=== PATIENT | male | born 1990 | race Caucasian/White ===

== ENCOUNTER 2016-12-29 05:26 | Emergency (ER) | payer OTHER ==
[2016-12-29] MEDS ORDERED: NS 0.9% 1000 ML* 1,000 ML IV ONE (05:40)
--- NOTE | 2016-12-29 06:20 | ED ---
Emery Lepe Matthew, scribed for Sean Ballesteros MD on 12/29/16 at 0602 . Substance Abuse/Use - HPI Summary HPI Summary: A 26 y/o male presents to the ED with an AMS. The patient's parents are unsure what medications he's taken. Per the patient he took Ambien and has 2 beers. He states that he normally takes 2 Ambien and a few beers before going to bed. He has a Hx of substance abuse and is currently taking suboxone. Per the father, the patient has been dressing and undressing, folding and unfolding, and taking pots and pans out of the kitchen. They also found the Ambien bottle open in the patient's room. - History Of Current Complaint Chief Complaint: EDAltMentalStatus Stated Complaint: OVERDOSE Time Seen by Provider: 12/29/16 05:40 Hx Obtained From: Patient, Family/Virtual Recruiter - Father & Mother Overdose Characteristics: Oral Severity Initially: Moderate Severity Currently: Moderate Character: Other - Confused Associated Signs And Symptoms: Negative Related Hx: Prior Drug Abuse Counseling/Admission - Allergies/Home Medications Allergies/Adverse Reactions: Allergies Allergy/AdvReac Type Severity Reaction Status Date / Time Penicillins [PCN] Allergy Hives Verified 03/04/15 18:03 PMH/Surg Hx/FS Hx/Imm Hx Psychiatric History: Reports: Hx Anxiety, Hx Substance Abuse Infectious Disease History: No Infectious Disease History: Denies: Traveled Outside the [place] in Last 30 Days - Family History Known Family History: Positive: Cardiac Disease, Diabetes - Social History Alcohol Use: Occasionally Alcohol Amount: Once per month Hx Substance Use: Yes Substance Use Type: Reports: Prescribed Substance Use Comment - Amount & Last Used: States he is "recovering addict"- subboxone injection Hx Tobacco Use: Yes Smoking Status (MU): Heavy Every Day Tobacco Smoker Review of Systems Constitutional: Negative Eyes: Negative ENT: Negative Cardiovascular: Negative Respiratory: Negative Gastrointestinal: Negative Genitourinary: Negative Musculoskeletal: Negative Skin: Negative Neurological: Other - Confusion Psychological: Other - apparent overdose All Other Systems Reviewed And Are Negative: Yes Physical Exam Triage Information Reviewed: Yes Vital Signs On Initial Exam: Initial Vitals Temp Pulse Resp BP Pulse Ox 99.7 F 120 18 147/100 100 12/29/16 05:29 12/29/16 05:29 12/29/16 05:29 12/29/16 05:29 12/29/16 05:29 Vital Signs Reviewed: Yes Appearance: Positive: No Pain Distress Skin: Positive: Warm Head/Face: Positive: Normal Head/Face Inspection Eyes: Positive: DENISSE ENT: Positive: Hearing grossly normal Neck: Positive: Supple Respiratory/Lung Sounds: Positive: Breath Sounds Present Cardiovascular: Positive: RRR Abdomen Description: Positive: Nontender, Soft Bowel Sounds: Positive: Present Musculoskeletal: Positive: Strength/ROM Intact Neurological: Positive: Alert, Oriented to Person Place, Time Psychiatric: Positive: Affect/Mood Appropriate Diagnostics - Vital Signs Vital Signs Temp Pulse Resp BP Pulse Ox 12/29/16 05:41 99.7 F 107 20 154/102 96 12/29/16 05:29 99.7 F 120 18 147/100 100 - Laboratory Result Diagrams: 12/29/16 06:05 12/29/16 06:05 Lab Statement: Any lab studies that have been ordered have been reviewed, and results considered in the medical decision making process. Course/Dx - Diagnoses Provider Diagnoses: Polysubstance abuse Discharge - Discharge Plan Condition: Fair Disposition: OTHER Discharge Disposition Comment: The patient is signed out to Dr. Doan pending lab work. Patient Education Materials: Polysubstance Abuse (ED) Referrals: Pedro Luis BOWEN,Cindy [Medical Doctor] - Krish Victoria DO [Primary Care Provider] - The documentation as recorded by the Emery mario Matthew accurately reflects the service I personally performed and the decisions made by me, Sean Ballesteros MD.
[2016-12-29 06:45] LABS: Hematocrit 43 % (42-52); Hemoglobin 14.8 g/dl (14.0-18.0); Mean Corpuscular HGB Conc 34 g/dl (31-36); Mean Corpuscular Hemoglobin 29 pg (27-31); Mean Corpuscular Volume 85 fL (80-94); Mean Platelet Volume 9 um3 (7.4-10.4); Red Blood Count 5.09 10^6/ul (4.0-5.4); Red Cell Distribution Width 14 % (10.5-15); White Blood Count 7.7 10^3/ul (3.5-10.8)
[2016-12-29 07:02] LABS: ALT 23 U/L (7-52); AST 41 U/L (13-39); Albumin 5.4 g/dL (3.2-5.2); Alkaline Phosphatase 43 U/L (34-104); Anion Gap 12 mmol/L (2-11); BUN/Creatinine Ratio 14.2 (8-20); Blood Urea Nitrogen 17 mg/dL (6-24); CO2 Carbon Dioxide 27 mmol/L (22-32); Calcium 10.2 mg/dL (8.6-10.3); Chloride 98 mmol/L (101-111); EGFR African American 93.4 (>60); EGFR Non-African American 72.6 (>60); Globulin 2.6 g/dL (2-4); Glucose 93 mg/dL (70-100); Potassium 3.1 mmol/L (3.5-5.0); Sodium 137 mmol/L (133-145)
[2016-12-29 07:03] LABS: Acetaminophen < 15 mcg/mL; Alcohol < 10 mg/dL (<10); Salicylate < 2.50 mg/dL (<30)
--- NOTE | 2016-12-29 07:27 | CONSULT ---
Consult Consult: Moise Ozuna was brought in on the previous shift by his parents concerned that he was 'altered' secondary to substance use. He has had problems in the past and sees a psychiatrist, Dr. Quinton Cloud in [place]. He has apparently contracted not to drink alcohol and had several drinks tonight and took his prescribed ambien. His behavior has improved while awaiting labs and he is insistent on being D/C'd. His parents feel that he is competent to make decisions at this time although they would prefer that he stay. His labs are reasonably normal. He is AAOX3 although a bit immature in his behavior and I don't have any reason to keep him against his will and will D/C him in stable condition with a diagnosis of polysubstance abuse.
[2016-12-29 08:41] VITALS: BP 166/99
== END 2016-12-29 07:25 ==
LOC: ED 05:26
DX: F19.10 Other psychoactive substance abuse, uncomplicated (principal); R41.0 Disorientation, unspecified; F17.210 Nicotine dependence, cigarettes, uncomplicated
CPT/HCPCS: 36415; 80053; 80320; 80329; 83605; 85025; 93005; 99283; G0480

== ENCOUNTER 2019-12-26 10:05 | Emergency (ER) | payer OTHER ==
--- OUTSIDE RECORDS SUMMARY | 2019-12-26 10:33 | XMS REPORT | Continuity of Care Document ---
:1990 External Reference #:[id number] Author Name Nadiya Villar Care Team Providers Name Role Phone Sandra Junior MD - Internal Care Team Information Employment Specialist/Program Manager Medicine Problems Description No Information Available Social History Type Date Description Comments Sex Unknown Allergies, Adverse Reactions, Alerts Description No Information Available Medications Description No Information Available Immunizations Description No Information Available Vital Signs Description No Information Available Results Description No Information Available Procedures Description No Information Available Medical Devices Description No Information Available Encounters Description No Information Available Assessments Description No Information Available Plan of Treatment Future Appointment(s):11/13/2019 11:40 am - Rosy Quintana M.D. at [facility] Functional Status Description No Information Available Mental Status Description No Information Available Referrals Description No Information Available
--- OUTSIDE RECORDS SUMMARY | 2019-12-26 10:33 | XMS REPORT | Continuity of Care Document ---
:1990 External Reference #:[id number] Author Name Rosy Quintana M.D. (transmitted by agent of provider Kelly Duke) Address [address] [place] [address] Care Team Providers Name Role Phone Sandra Junior MD - Internal Care Team Information Disability Hearing Officer Medicine Krish Victoria DO - Family Medicine Care Team Information Disability Hearing Officer Problems Active Problems Provider Date Electrocardiogram abnormal Rosy Quintana M.D. Onset: 11/13/2019 Social History Type Date Description Comments Sex Unknown ETOH Use Denies alcohol use Tobacco Use Start: Unknown Heavy tobacco smoker (more than 10 cigarettes/day) Recreational Drug Use Former Drug User was doing Meth and opiods- quit september 12 2019 Smoking Status Reviewed: 11/13/19 Heavy tobacco smoker (more than 10 cigarettes/day) Exercise Type/Frequency Does not exercise Allergies, Adverse Reactions, Alerts Active Allergies Reaction Severity Comments Date Penicillin 11/13/2019 Medications Active Medications SIG Qnty Indications Ordering Provider Date Methadone HCL 95mg once a day Unknown 40mg Tablets Soluble Magnesium Oxide -MG 1 by mouth daily Unknown Supplement 400mg Capsules Immunizations Description No Information Available Vital Signs Date Vital Result Comment 11/13/2019 11:14am Height 74 inches 6'2" Weight 185.00 lb with shoes Heart Rate 63 /min BP Systolic 132 mmHg Rue reg cuff BP Diastolic 98 mmHg Rue reg cuff BP Systolic Sitting 132 mmHg Lue reg cuff BP Diastolic Sitting 100 mmHg Lue reg cuff BP Systolic Standing 132 mmHg Lue reg cuff BP Diastolic Standing 110 mmHg Lue reg cuff BMI (Body Mass Index) 23.8 kg/m2 Results Description No Information Available Procedures Date Code Description Status 11/13/2019 39663 EKG Tracing & Interpretation Completed Medical Devices Description No Information Available Encounters Type Date Location Provider Dx Diagnosis Office Visit 11/13/2019 [facility] Rosy Quintana R94.31 Abnormal 11:40a Of [facility] electrocardiogram [ECG] [EKG] R03.0 Elevated blood-pressure reading, w/o diagnosis of htn Z72.0 Tobacco use Z51.81 Encounter for therapeutic drug level monitoring F11.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 11/13/2019 R03.0 Elevated blood-pressure reading, without Rosy Quintana M.D. diagnosis of hypertension 11/13/2019 Z72.0 Tobacco use Rosy Quintana M.D. 11/13/2019 Z51.81 Encounter for therapeutic drug level monitoring Rosy Quintana M.D. 11/13/2019 F11.988 Opioid use, unspecified with other Rosy Quintana M.D. opioid-induced disorder Plan of Treatment Future Appointment(s):11/29/2019 1:00 pm - [facility] ECHO Schedule at [facility]11/13/2019 - Rosy Quintana M.D.R94.31 Abnormal electrocardiogram [ECG] [EKG]New Orders:Echocardiogram, Ordered: Comments:QTc 463, OK on this dose.Avoid medications that lengthen this, this can include antibiotics, antifungals antidepressants and more.Follow up:Release : Most recent labs Dr Junior Any lipids, labs Irish Cherry. Most recent OV notes both MD's PRN for now, will check with DR Junior Have nurses provide pt with a list of medications thatprolong QT interval.Recommendations: Very important not to take drugs that lengthen QT further as it can cause a life threatening rhythm problem: VT of VF (ventricular tachycardia and ventricular fibrillation). Call an MD or go to ED ifany heart racing, palpitations, dizziness, nearly fainting, fainting.R03.0 Elevated blood- pressure reading, without diagnosis of hypertensionNew Orders:Echocardiogram, Ordered: 11/13/19Comments:Check BP's at home or at a pharmacy, write down and bring into your primary MD.Follow up:We will call with results of echo.Z72.0 Tobacco useZ51.81 Encounter for therapeutic drug level usiaqjlearJ43.988 Opioid use, unspecified with other opioid-induced disorder Functional Status Description No Information Available Mental Status Description No Information Available Referrals Description No Information Available
--- OUTSIDE RECORDS SUMMARY | 2019-12-26 10:33 | XMS REPORT | Continuity of Care Document ---
:1990 External Reference #:[id number] Author Name Rosy Quintana M.D. Address [address] [place] [address] Care Team Providers Name Role Phone Sandra Junior MD - Internal Care Team Information Sanitation Truck Driver [phone] Medicine Krish Victoria DO - Family Medicine Care Team Information Sanitation Truck Driver Problems Active Problems Provider Date Electrocardiogram abnormal [...] Available Procedures Date Code Description Status 11/13/2019 32490 EKG Tracing & Interpretation Completed Medical Devices Description No Information Available Encounters Type Date Location Provider Dx Diagnosis Office Visit 11/13/2019 [facility] Rosy Quintana, R94.31 Abnormal 11:40a Of [facility] electrocardiogram [ECG] [EKG] R03.0 Elevated blood-pressure reading, w/o diagnosis of htn Assessments Date Code Description Provider 11/13/2019 R94.31 Abnormal electrocardiogram [ECG] [EKG] Rosy Quintana M.D. 11/13/2019 R03.0 Elevated blood-pressure reading, without Rosy Quintana M.D. diagnosis of hypertension Plan of Treatment 11/13/2019 - Rosy Quintana M.D.R94.31 Abnormal electrocardiogram [ECG] [EKG]New Orders:Echocardiogram, Ordered: 11/13/19Comments:QTc 463, OK on this dose.Avoid medications that lengthen this, this can include antibiotics, antifungals antidepressants and more.Follow up:Release: Most recent labs Dr Junior Any lipids, labs Irish Cherry. Most recent OV notes both MD's PRN for now, will check with DR Junior Have nurses provide pt with a list of medications thatprolong QT interval.Recommendations:Very important not to take drugs that lengthen QT further as it can cause a life threatening rhythm problem: VT of VF (ventricular tachycardia and ventricular fibrillation). Call an MD or go to ED ifany heart racing, palpitations, dizziness, nearly fainting, fainting.R03.0 Elevated blood-pressure reading, without diagnosis of hypertensionNew Orders: Echocardiogram, Ordered: 11/13/19Comments:Check BP's at home or at a pharmacy, write down and bring into your primary MD.Follow up:We will call with results of echo. Functional Status Description No Information Available Mental Status Description No Information Available Referrals Description No Information Available
--- OUTSIDE RECORDS SUMMARY | 2019-12-26 10:33 | XMS REPORT | Continuity of Care Document ---
:1990 External Reference #:[id number] Author Name Nadiya Villar Care Team Providers Name Role Phone Sandra Junior MD - Internal Care Team Information Annealing Operator [phone] Medicine Problems Description No Information Available Social [...] 11:40 am - Rosy Quintana M.D. at [facility] Functional Status Description No Information Available Mental Status Description No Information Available Referrals Description No Information Available
--- OUTSIDE RECORDS SUMMARY | 2019-12-26 10:33 | XMS REPORT | Continuity of Care Document ---
:1990 External Reference #:[id number] Author Name Nadiya Villar Care Team Providers Name Role Phone Sandra Junior MD - Internal Care Team Information Climate Change Risk Assessor Medicine Problems Description No Information Available Social [...] 11:40 am - Rosy Quintana M.D. at [facility] Functional Status Description No Information Available Mental Status Description No Information Available Referrals Description No Information Available
--- OUTSIDE RECORDS SUMMARY | 2019-12-26 10:33 | XMS REPORT | Continuity of Care Document ---
:1990 External Reference #:[id number] Author Name Nadiya Villar Care Team Providers Name Role Phone Sandra Junior MD - Internal Care Team Information Hosiery Repairer Medicine Problems Description No Information Available Social [...] 11:40 am - Rosy Quintana M.D. at [facility] Functional Status Description No Information Available Mental Status Description No Information Available Referrals Description No Information Available
[2019-12-26] MEDS ORDERED: Ibuprofen TAB* 600 MG PO ONE (10:49)
--- NOTE | 2019-12-26 11:00 | ED ---
Upper Extremity Pain - HPI Summary HPI Summary: 29-year-old right-hand dominant male with a significant past medical history of polysubstance abuse presents to the emergency department today complaining of 6 out of 10 pain to the right lateral medial hand. Patient states he "whacked it " on something but does not recall the event. Patient denies injecting into his hands prior to arrival. Patient has full range of motion of the right hand and is neurovascularly intact. There is mild swelling noted to the medial right hand to the dorsal aspect. No ecchymosis or erythema. Patient is otherwise well and denies fever, chest and abdomen vomiting shortness of breath , nausea, vomiting and diarrhea. Patient has taken methadone for pain prior to arrival. - History of Current Complaint Chief Complaint: EDExtremityUpper Stated Complaint: RIGHT HAND INJURY PER PT Time Seen by Provider: 12/26/19 10:14 Hx Obtained From: Patient Mechanism Of Injury: Unknown Onset/Duration: Started Days Ago Timing: Constant Severity Initially: Moderate Severity Currently: Moderate Aggravating Factor(s): Movement, Lifting, Flexion, Extension, Internal/External Rotation, Abduction, Adduction, Twisting Alleviating Factor(s): Rest Associated Signs & Symptoms: Positive: Swelling. Negative: Redness, Bruising, Fever, Weakness, Numbness/Tingling, Chest Pain, SOB, Nausea Related History: Dominant Hand Right - Allergies/Home Medications Allergies/Adverse Reactions: Allergies Allergy/AdvReac Type Severity Reaction Status Date / Time Penicillins Allergy Hives Verified 12/26/19 10:12 Home Medications: Home Medications Ibuprofen TAB* [Motrin TAB* 800 MG] 800 mg PO Q8H PRN #12 tab 12/26/19 [Rx] Magnesium Oxide TAB* [MagOx 400 TAB*] 400 mg PO DAILY 12/26/19 [History Confirmed 12/26/19] Methadone TAB* [Dolophine TAB*] 100 mg PO DAILY 12/26/19 [History Confirmed ] PMH/Surg Hx/FS Hx/Imm Hx Psychiatric History: Reports: Hx Anxiety, Hx Substance Abuse Infectious Disease History: No Infectious Disease History: Denies: Traveled Outside the [place] in Last 30 Days - Family History Known Family History: Positive: Cardiac Disease, Diabetes - Social History Alcohol Use: Occasionally Alcohol Amount: Once per month Hx Substance Use: Yes Substance Use Type: Reports: Prescribed, Other Substance Use Comment - Amount & Last Used: used "speed" today 12/26/2019 Hx Tobacco Use: Yes Smoking Status (MU): Heavy Every Day Tobacco Smoker Review of Systems Constitutional: Negative Eyes: Negative ENT: Negative Cardiovascular: Negative Respiratory: Negative Gastrointestinal: Negative Genitourinary: Negative Positive: Arthralgia, Edema Skin: Negative Neurological/Mental Status: Negative Psychological: Normal All Other Systems Reviewed And Are Negative: Yes Physical Exam - Summary Physical Exam Summary: Patient is no acute distress. Patient has full range of motion of the right hand. Patient is neurovascularly intact. There is mild edema noted to the medial dorsal aspect of the right hand. Patient denies pain with traction of the digits. Patient denies snuffbox tenderness. Patient has subjective increase in pain with movement of the right hand. Triage Information Reviewed: Yes Vital Signs On Initial Exam: Initial Vitals Temp Pulse Resp BP Pulse Ox 97.6 F 99 18 179/109 99 12/26/19 10:08 12/26/19 10:08 12/26/19 10:08 12/26/19 10:08 12/26/19 10:08 Vital Signs Reviewed: Yes Appearance: Positive: Well-Appearing, No Pain Distress, Well-Nourished Skin: Positive: Warm, Skin Color Reflects Adequate Perfusion Eyes: Positive: EOMI, DENISSE ENT: Positive: Hearing grossly normal Respiratory/Lung Sounds: Positive: Clear to Auscultation, Breath Sounds Present Cardiovascular: Positive: RRR, S1, S2 Musculoskeletal: Positive: Strength/ROM Intact Neurological: Positive: Sensory/Motor Intact, Alert, Oriented to Person Place, Time, Normal Gait, Facial Symmetry, Speech Normal Psychiatric: Positive: Normal, Affect/Mood Appropriate AVPU Assessment: Alert Procedures - Sedation Patient Received Moderate/Deep Sedation with Procedure: No Diagnostics - Vital Signs Vital Signs Temp Pulse Resp BP Pulse Ox 12/26/19 10:08 97.6 F 99 18 179/109 99 - Laboratory Lab Statement: Any lab studies that have been ordered have been reviewed, and results considered in the medical decision making process. Course/Dx - Course Course Of Treatment: Patient was evaluated in the emergency department today for pain of the right hand. Vital signs noted and stable. Physical exam showed edema without erythema or ecchymosis to the right medial dorsal aspect of the right hand. X-rays done which showed no evidence of acute osseous injury. Patient was given ibuprofen and a cock-up splint for comfort. Patient discharged to outpatient follow-up with suggested repeat imaging should his symptoms persist in 14 days. Patient agrees with plan. Patient discharged to outpatient follow-up. - Diagnoses Differential Diagnosis/HQI/PQRI: Positive: Arthritis, Contusion, Fracture (Open) , Fracture (Closed), Strain, Sprain Provider Diagnoses: Right hand pain - Critical Care Time Critical Care Statement: Critical care time is provided exclusive of any time spent performing procedures. Discharge ED - Sign-Out/Discharge Documenting (check all that apply): Patient Departure - Discharge Plan Condition: Stable Disposition: HOME Patient Education Materials: Arthralgia (ED) Referrals: Krish Victoria DO [Primary Care Provider] - If Needed Additional Instructions: There is no evidence of fracture however there may be one too small to see on x- ray at this time. If you continue to have pain please follow-up with your primary care physician in 2 weeks for repeat imaging. Until then please take ibuprofen 600 mg every 6 hours as needed for pain and apply ice. Please wear the splint given to you for your comfort. Please return to the emergency department immediately should you develop any new or worsening symptoms. Please follow-up with your primary care provider in one week if needed. - Billing Disposition and Condition Condition: STABLE Disposition: Home
[2019-12-26 11:17] VITALS: BP 131/101
== END 2019-12-26 11:14 | disposition home or self-care (01) ==
LOC: ED 10:05
DX: M79.641 Pain in right hand (principal); F19.10 Other psychoactive substance abuse, uncomplicated; R60.9 Edema, unspecified; Z88.0 Allergy status to penicillin; F41.9 Anxiety disorder, unspecified; F17.210 Nicotine dependence, cigarettes, uncomplicated
CPT/HCPCS: 99282; A9270-GY